=== PATIENT | female | born 1940 | race Caucasian/White ===

== ENCOUNTER 2017-08-25 13:00 | Day surgery (SDC) | payer OTHER ==
[~2017-08-25 13:00] MED LIST: CEFADROXIL500 MG PO; PERCOCET 5/321 UDTAB PO; XARELTO10 MG PO
[2017-08-25] MEDS ORDERED: ACIDO FOLICO (13:46)
[2017-08-25] MEDS ORDERED: [UNRECOGNIZED DRUG - OTHER] (13:47)
[2017-08-25] MEDS ORDERED: LOZARTAN (13:47)
[2017-08-25] MEDS ORDERED: PERCOCET 5-3251 EACH PO (19:08)
[2017-08-25] MEDS ORDERED: ALEVE220 MG PO (19:08)
[2017-08-25] MEDS ORDERED: CEFADROXIL500 MG PO (19:08)
== END 2017-08-25 20:00 | disposition home or self-care (01) ==
LOC: CIR.AMB 13:00 → CERT RX 13:15 → CIR.AMB 13:46
DX: S52.532A Colles' fracture of left radius, initial encounter for closed fracture (principal); M81.0 Age-related osteoporosis without current pathological fracture
CPT/HCPCS: 25609; 20902; C1776